=== PATIENT | female | born 1970 | race Hispanic/Latino ===

== ENCOUNTER 2023-08-21 09:37 | Emergency (ER) | payer BC ==
[~2023-08-21] VITALS: Ht 147.3 cm; Wt 61.5 kg
[2023-08-21 10:13] LABS: BASOPHILS 0.5 % (0-2); EOSINOPHILS 1.9 % (0-6); HEMATOCRIT 43.7 % (35.0-50.0); HEMOGLOBIN 14.6 g/dL (12.0-18.0); LYMPHOCYTES 39.3 % (24-44); MCH 29.2 (27-36); MCHC 33.4 g/dl (30-36); MCV 87.5 fl (81-99); MONOCYTES 5.5 % (0-12); NEUTROPHILS 52.8 % (39-80); PLATELET COUNT 204 K/uL (140-440); RBC 4.99 M/ul (4.3-5.7); RDW 12.8 (10.5-15.0)
[2023-08-21 10:25] LABS: ALBUMIN 3.7 g/dL (3.4-5.0); ALBUMIN/GLOBULIN RATIO 0.88 (1.1-2.4); ALKALINE PHOSPHATASE 96 U/L (46-116); ALT (SGPT) 24 U/L (14-59); ANION GAP 12.7 (7-21); AST (SGOT) 10 U/L (15-37); BILIRUBIN, TOTAL 0.5 ng/dL (0.2-1.0); BUN/CREATININE RATIO 18.03 (6.0-28.6); CALCIUM 9.1 mg/dL (8.5-10.1); CARBON DIOXIDE 27 mmol/L (21-32); CHLORIDE 101 mmol/L (98-107); CREATININE, SERUM 0.61 mg/dL (0.55-1.02); GLOMERULAR FILTRATION RATE,EST 108 mL/min (>60); POTASSIUM 3.7 mmol/L (3.5-5.1); PROTEIN, TOTAL 7.9 g/dL (6.4-8.2); UREA NITROGEN 11 mg/dL (7-18)
[2023-08-21] MEDS ORDERED: ONDANSETRON ODT4 MG PO (11:27)
[2023-08-21 11:35] VITALS: BP 157/84
== END 2023-08-21 11:35 | disposition home or self-care (01) ==
LOC: ED 09:37
PROVIDERS: Emergency Medicine
DX: K85.90 Acute pancreatitis without necrosis or infection, unspecified (principal); K76.0 Fatty (change of) liver, not elsewhere classified; E11.9 Type 2 diabetes mellitus without complications
CPT/HCPCS: 36415; 74177; 76705; 80053; 83690; 83735; 85025; 96361; 99284-25; J2405; J7030; Q9967